=== PATIENT | female | born 1990 | race Caucasian/White ===

== ENCOUNTER 2018-01-09 12:32 | Inpatient (IN) | payer BC, OTHER ==
[~2018-01-09] VITALS: Ht 175.3 cm; Wt 77.1 kg
--- NOTE | 2018-01-09 14:15 | NUR ---
Pre-admission Note: Client received in intake office at this time. She is alert and oriented x 4. Appears disheveled, restless, withdrawn, complains of chills, hot flashes and cold sweats. Does not appear intoxicated at this time. Denies AV hallucinations. No S/I or H/I noted. She denies any allergies to food or medication. Denies seizure history. She states that is here to get off multiple substances. VS BP 135/83, GA 81, RR 20, O2 sat 99%, Temp 98.1, PL 5/10 - generalized muscle aches and pains. Patient is able to provide consent regarding the admission process. Educated patient on the admission process. Patient verbalized understanding. Will continue with the admission process when patient is up in the unit. Dr. Lee aware of patient's arrival in the unit. Will continue to monitor.
[2018-01-09 14:19] VITALS: BP 135/83
[2018-01-09] MEDS ORDERED: LORAZEPAM 2 MG/1 ML VIAL IM PRN (14:30)
[2018-01-09] MEDS ORDERED: LOPERAMIDE HCL 2 MG CAPSULE PO PRN ×2 (14:30)
[2018-01-09] MEDS ORDERED: BUPRENORPHINE HCL 2 MG TAB.SUBL SL PRN (14:30)
[2018-01-09] MEDS ORDERED: NICOTINE POLACRILEX 4 MG GUM-PK OF TEN BC PRN (14:30)
[2018-01-09] MEDS ORDERED: ONDANSETRON 4 MG/2 ML VIAL IM PRN (14:30)
[2018-01-09] MEDS ORDERED: diphenhydrAMINE 50 MG CAPSULE PO PRN (14:30)
[2018-01-09] MEDS ORDERED: CLONIDINE HCL 0.1 MG TABLET PO PRN (14:30)
[2018-01-09] MEDS ORDERED: MAGNESIUM HYDROXIDE 30 ML LIQUID UDC PO PRN (14:30)
[2018-01-09] MEDS ORDERED: DICYCLOMINE HCL 20 MG TABLET PO PRN (14:30)
[2018-01-09] MEDS ORDERED: MIRALAX 17 GM POWD.PACK PO PRN (14:30)
[2018-01-09] MEDS ORDERED: NICOTINE 14 MG/24HR PATCH TD PRN (14:30)
[2018-01-09] MEDS ORDERED: ONDANSETRON ODT 4 MG TAB.RAPDIS SL PRN (14:30)
[2018-01-09] MEDS ORDERED: IBUPROFEN 600 MG TABLET PO PRN (14:30)
[2018-01-09] MEDS ORDERED: LORAZEPAM 1 MG TABLET PO PRN ×2 (14:30)
[2018-01-09] MEDS ORDERED: MAG HYDROX/AL HYDROX/SIMETH 30 ML LIQUID UDC PO PRN (14:30)
--- NOTE | 2018-01-09 14:31 | NUR ---
Admission Note: Admitted at 27 year old female under the care of Dr. Alan Lee for medically supervised withdrawal from opiates and benzodiazepines. She is alert and oriented x 4. Denies S/I or H/I. No AV hallucinations noted. Respirations even and unlabored. No SOB noted. Body search done. No contraband was found. Skin check done. No skin breakdown noted. However, patient was noted to have multiple track martinez to bilateral upper extremity. Abdomen soft and non-distended. No complains of abdominal discomfort noted at this time. LBM reported was yesterday, 01/08/2018. Voids independently. Bladder non-distended. No dysuria noted. Able to provide urine for UDS. NKA. Wishes to be FULL CODE. Follows a regular diet at home. She denies any seizure history. However, reports history of withdrawal induced delirium, accidental intoxication-induced overdoses, and past suicide attempt leading to an involuntary psychiatric hospitalization. Last one being 4 to 5 years ago. She denies having any active suicide plans at this time. She reports past medical hx of asthma, Hep C, GERD, anxiety, depression, bipolar disorder, and PTSD. She reports family hx of alcohol use disorder, depression, bipolar and anxiety. She currently smokes 1 pack of cigarettes a day. She reports her usual withdrawal symptoms are insomnia, achy, sweaty, chills, cold sweats, hot flashes, nausea, vomiting and diarrhea. She is currently homeless and unemployed. She reports having a PCP named Dr. Krista Munoz in [place]. She has been to multiple treatments in the past. Her longest period of sobriety was for 10 months in 2016, then relapsed. Substance Use: 1. Subaxone - 16 mg SL/day x 1 month. Last use was on 01/08/2018 at 2100, 8 mg. 2. Klonopin - Orally 0.5mg 2x/day x 1 month. Last use was on 01/07/2018, 1 mg. 3. Heroin - Injects 1/2 gram to 1 gram intravenously x 1 month. Last use was on 01/08/2018 0900, 1/2 gram. 4. Crack cocaine - smokes 2 grams/day x 1 month. Last use was on 01/08/2018, "unknown amount." Substance Use History: 1. [facility] in [place], [place] - x 20 days in Sep 2017. Orientation to the unit provided. Placed on fall and seizure precautions. Dr. Lee aware of patient's arrival in the unit and orders were entered. Patient will be placed on 5-day Ativan and 5-day Subutex taper as ordered to end on 01/14/2018. Patient brought her own meds. reconciled patient's meds. Patient kept in a comfortable position. Support provided and will medicate as ordered. Will continue to monitor. Addendum: 01/09/18 at 1704 by TOM KING LVN Additional Substance Use: 5. Marijuana - smoked variable quantities daily, last use was 01/08/2018 "unknown amount."
[2018-01-09 14:55] LABS: *URINE HCG, QUAL NEGATIVE (NEGATIVE)
[2018-01-09] MEDS ORDERED: TRAZ-147 PO (14:57)
[2018-01-09] MEDS ORDERED: ESOM5SUS PO (14:57)
[2018-01-09] MEDS ORDERED: QUET100T PO (14:57)
[2018-01-09] MEDS ORDERED: ASPI1TAB2 PO (14:57)
[2018-01-09] MEDS ORDERED: SERT50TA PO (14:57)
[2018-01-09] MEDS ORDERED: ALBU8.5H8 INH (14:57)
[2018-01-09] MEDS ORDERED: OMEP40CA37 PO (14:57)
[2018-01-09] MEDS ORDERED: GABA-536 PO (14:57)
[2018-01-09] MEDS ORDERED: ALBU18HF2 INH (14:57)
[2018-01-09 15:04] LABS: *AMPHETAMINE, URINE NEGATIVE (NEGATIVE); *BARBITURATE, URINE NEGATIVE (NEGATIVE); *CANNABINOID, URINE POSITIVE (NEGATIVE); *COCCAINE, URINE POSITIVE (NEGATIVE); *OPIATE, URINE POSITIVE (NEGATIVE); *PHENCYCLIDINE SCREEN,URINE NEGATIVE (NEGATIVE)
[2018-01-09] MEDS ORDERED: VENTOLIN INH PRN (15:45)
[2018-01-09 16:00] VITALS: BP 136/76
[2018-01-09] MEDS: BUPRENORPHINE HCL 2 MG TAB.SUBL SL SCH ×2 (16:10→20:45)
[2018-01-09] MEDS: METHOCARBAMOL 750 MG TABLET PO PRN (16:11)
[2018-01-09] MEDS: LORAZEPAM 1 MG TABLET PO SCH ×2 (16:11→20:45)
--- NOTE | 2018-01-09 16:11 | NUR ---
Robaxin 750mg/Clonidine 0.1mg PO given: COWS 12, patient presented with anxiety/agitation, complains of chills, cold sweats and hot flashes. Also complain of 5/10 myalgia related to opiate withdrawal. Medicated patient with Robaxin 750 mg PO and Clonidine 0.1mg PO as ordered. Will monitor for effectiveness.
--- NOTE | 2018-01-09 17:11 | NUR ---
Re-assessment: Robaxin/Clonidine Patient verbalizes that PL is now 2/10. She states that she feels more at ease, less chills and hot flashes noted at this time. PRN Robaxin and Clonidine was effective.
[2018-01-09 17:23] LABS: BASOPHILS # (AUTO) 0.1 K/uL (0.0-8.0); EOSINOPHILS # (AUTO) 0.2 K/uL (0.0-0.7); EOSINOPHILS % (AUTO) 2.2 % (0.0-7.0); HEMATOCRIT 40.9 % (31.2-41.9); HEMOGLOBIN 13.8 g/dL (10.9-14.3); LYMPHOCYTES # (AUTO) 2.1 K/uL (20.0-40.0); LYMPHOCYTES % (AUTO) 25.8 % (20.5-51.5); MEAN CORPUSCULAR HEMOGLOBIN 29.2 uug (24.7-32.8); MEAN CORPUSCULAR HGB CONC 34 g/dL (32.3-35.6); MEAN CORPUSCULAR VOLUME 86.7 fL (75.5-95.3); MONOCYTES # (AUTO) 0.7 K/uL (2.0-10.0); MONOCYTES % (AUTO) 8.4 % (0.0-11.0); NEUTROPHILS # (AUTO) 5.2 K/uL (1.8-8.9); NEUTROPHILS % (AUTO) 62.6 % (38.5-71.5); PLATELET COUNT (AUTO) 249 K/uL (179-408); RED BLOOD CELL COUNT(AUTO) 4.72 MIL/uL (3.63-4.92); WHITE BLOOD COUNT (AUTO) 8.3 K/uL (3.8-11.8)
[2018-01-09 17:36] LABS: ETHANOL < 3 MG/DL (0-0)
[2018-01-09 17:43] LABS: ALANINE AMINOTRANSFERASE 87 U/L (14-59); ALKALINE PHOSPHATASE 74 U/L (50-136); ASPARTATE AMINOTRANSFERASE 31 U/L (15-37); BILIRUBIN,TOTAL 0.4 mg/dL (0.2-1.0); CARBON DIOXIDE 24 mmol/L (21-32); CHLORIDE 101 mmol/L (98-107); CREATININE 0.7 mg/dL (0.6-1.3); GLUCOSE 114 mg/dL (74-106); MAGNESIUM 1.9 mg/dL (1.8-2.4); POTASSIUM 3.8 mmol/L (3.5-5.1); TOTAL PROTEIN, SERUM 8.1 g/dL (6.4-8.2); UREA NITROGEN, BLOOD 9 mg/dL (7-18)
[2018-01-09 18:43] LABS: THYROID STIMULATING HORMONE 0.214 mIU/mL (0.358-3.740)
--- NOTE | 2018-01-09 19:03 | NUR ---
End of Shift Notes: Patient initiated her 5-day Subutex and Ativan taper today. VS monitored closely. No significant abnormalities noted. Withdrawal symptoms were closely monitored. Initial COWS 12/CIWA 12, patient presented with anxiety, agitation, chills, hot flashes, cold sweats, clammy skin, and myalgia. Medicated patient with Robaxin and Clonidine at 1611 with help after 1 hour. Last COWS /CI 12. Per patient, Ativan and Subutex has been effective in reducing her withdrawal symptoms. All needs met and attended. Will continue to monitor closely.
--- NOTE | 2018-01-09 19:03 | NUR ---
START OF SHIFT NOTE: Endorsed patient is a 27 year old female admitted for Benzodiazepines, Opioid, Crack Cocaine, and Marijuana withdrawal, continues 5 day Ativan and 5 day Subutex taper with tolerated well. Patent reports NKA, is on Full Code, Regular Diet, is on Fall and Seizures Precautions. Patient denies History of withdrawal-induced seizures. Patient denies SI/HI. Patient is alert and oriented x4. Last COWS=12, CIWA=12 @1600 per outgoing day shift nurse report: Patient presented with anxiety, agitation, nervousness, tremors, myalgia, sweating, nasal stiffness, and yawning. PRN Clonidine 0.1 mg PO administrated for anxiety @1611, and PRN Robaxin 750 mg 1 tab PO administrated for myalgia @1611 as ordered were effective per day shift nurse report. Patient remains compliant with treatment, medications and diet regime. Encouraged to fluid intake as tolerated. Encourage to attended groups activities. All needs met. Safety measures in place: Call light within reach, bed is locked in lowest position, padded bed rails up bilaterally. Patient endorsed by day shift nurse. Report received. Will continue to monitor closely.
[2018-01-09 20:00] VITALS: BP 107/67
[2018-01-09] MEDS: GABAPENTIN 300 MG CAPSULE PO SCH (20:45)
--- NOTE | 2018-01-09 22:00 | NUR ---
PRN BENADRYL 50 MG 1 CAP PO ADMINISTRATION Patient c/o insomnia. PRN Benadryl 50 mg 1 cap PO administrated with full glass of water as ordered. Patient tolerated well. All needs met. Safety measures on place. Call light within reach, bed in lowest position locked, padded rails up bilaterally. Will continue to monitor closely.
--- NOTE | 2018-01-09 23:00 | NUR ---
RE-ASSESSMENT Patient is sleeping. RR 14. Respirations even and unlabored. PRN Benadryl 50 mg 1 tab PO administrated for insomnia @2200 as ordered was effective. All needs met. Safety measures on place. Call light within reach, bed in lowest position locked, padded rails up bilaterally. Will continue to monitor closely.
[2018-01-10] VITALS: BP 123/77
--- NOTE | 2018-01-10 00:26 | NUR ---
PRN ATIVAN 2 MG PO ADMINISTRATION PRN ATIVAN 2 MG PO ADMINISTRATED FOR CIWA=15 ORDERED. PATIENT TOLERATED WELL. ALL NEEDS MET. SAFETY MEASURES IN PLACE;CALL LIGHT WITHIN REACH, BED IS LOCKED IN LOWEST POSITION, PADDED BED RAILS UP X2. WILL CONTINUE TO MONITOR CLOSELY. Addendum: 01/10/18 at 0619 by MARBELLA KWONG RN PRN ATIVAN 2 MG PO ADMINISTRATED FOR CIWA=17 ORDERED.
--- NOTE | 2018-01-10 01:26 | NUR ---
RE-ASSESSMENT Patient is sleeping. RR 15. Respirations even and unlabored. PRN Ativan 2 mg PO administrated for CIWA= 15 @0026 as ordered was effective. All needs met. Safety measures on place. Call light within reach, bed in lowest position locked, padded rails up bilaterally. Will continue to monitor closely. Addendum: 01/10/18 at 0309 by MARBELLA KWONG RN PRN ATIVAN 2 MG PO ADMINISTRATED FOR CIWA=17 ORDERED.
[2018-01-10 04:00] VITALS: BP 109/63
--- NOTE | 2018-01-10 06:49 | NUR ---
END OF SHIFT NOTE: 27 year old female presented for Benzodiazepines, Opioid, Crack Cocaine, and Marijuana withdrawal, continues 5 day Ativan and 5 day Subutex taper. Patient tolerated well. Withdrawal symptoms was closely monitored. Patient noted anxious, worry, unshaven, uncombed. Patient 's c/o feelings of low self-esteem, increased anxiety and irritability. Emotional support provided, and patient 's reassuring. Patient educated in safety and hygiene care. Encouraged to independently perform hygiene care. Withdrawal symptoms was closely monitored. COWS=9, CIWA=9 @2000, COWS=15, CIWA=15 @0000, COWS=15, CIWA=17 @0026, Ativan 2 mg PO administrated PRN as ordered for CIWA=17, and was effective: in one hour CIWA =10 @0126. Last COWS=8, CIWA=9 @0400. During hourly shift patient c/o anxiety, agitation, nervousness, nasal stuffy, stomach cramps, sweating, tremors, and restlessness. PRN Benadryl 50 mg 1 tab PO administrated for insomnia @2200 was effective. Safe and calm environment with minimized noises was provided. Patient slept 6 hours, intake 651 ml, voided x2. All needs met. Safety measures in the place by hospital policy: Call light within reach, bed in the lowest position and locked, padded rails up x2. Patient endorsed to day shift nurse.
--- NOTE | 2018-01-10 07:05 | NUR ---
Start of Shift Rehabilitation Nurse received report on 27 year old female admitted to [facility] on 01/09/18 for medically supervised withdrawal from Opiates, Benzodiazepines and crack cocaine. Pt endorses NKA, full code, and regular diet. Reports PMH of Bipolar, anxiety, depression, Panic DO, PTSD, Hep C, and is positive for SA many years ago. Pt has been started on an Ativan and Subutex taper and is tolerating well, with COWS 8 and CIWA 9, recorded at 0400, per NOC report. Pt was administered Benadryl PRN for insomnia and then PRN Ativan for CIWA of 17 at 0026. Rehabilitation Nurse encounters pt in her room, resting in bed. A/O x4 and makes needs known. Calm and cooperative, blunted affect with depressed mood. Reports having experience with withdrawal and knows what to expect. Endorsed being familiar with withdrawal medications and will ask for appropriate medication when necessary. Bed in low position, with wheels locked and side rails up x2. Will continue to monitor, support and encourage according to plan of care.
[2018-01-10] MEDS: PANTOPRAZOLE SODIUM 40 MG TABLET.DR PO SCH (07:17)
[2018-01-10 08:26] VITALS: BP 109/79
[2018-01-10] MEDS ORDERED: TUBERCULIN,PURIF.PROT.DERIV. 5 TU/0.1 ML TEST ID ONE (09:00)
[2018-01-10] MEDS: LORAZEPAM 1 MG TABLET PO SCH ×3 (09:09→20:15)
[2018-01-10] MEDS: GABAPENTIN 300 MG CAPSULE PO SCH ×3 (09:09→20:15)
[2018-01-10] MEDS: BUPRENORPHINE HCL 2 MG TAB.SUBL SL SCH ×3 (09:10→20:16)
[2018-01-10] MEDS: METHOCARBAMOL 750 MG TABLET PO PRN (09:38)
--- NOTE | 2018-01-10 09:38 | NUR ---
PRN Bentyl/Briceaxin Pt having complaints of abdominal pain/cramps, as well as generalized muscle discomfort. Insulator Helper administers medication per order and pt tolerated well. Will continue to monitor, support and encourage according to plan of care.
--- NOTE | 2018-01-10 10:38 | NUR ---
PRN Re-Assessment Pt is resting on bed with eyes closed, even and unlabored respirations. Will continue to monitor, support and encourage according to plan of care.
[2018-01-10] MEDS ORDERED: SERTRALINE HCL 50 MG TABLET PO SCH (11:00)
[2018-01-10] MEDS: SERTRALINE HCL 100 MG TABLET PO SCH (11:47)
[2018-01-10 12:18] VITALS: BP 117/72
[2018-01-10 16:59] VITALS: BP 137/88
--- NOTE | 2018-01-10 18:44 | NUR ---
End of Shift Dairy Scientist provided report on 27 year old female admitted to [facility] on 01/09/18 for medically supervised withdrawal from Opiates, Benzodiazepines and crack cocaine. Pt endorses NKA, full code, and regular diet. Reports PMH of Bipolar, anxiety, depression, Panic DO, PTSD, Hep C, and is positive for SA many years ago. Pt has been started on an Ativan and Subutex taper and is tolerating well, with COWS 9 and CIWA 9, recorded at 1600. Pt was administered Bentyl and Robaxin this am with relief endorsed. Pt has been cooperative and pleasant. Makes needs known. A/O x4, calm and cooperative. Social with peers and staff. Bed in low position, with wheels locked and side rails up x2. Will continue to monitor, support and encourage according to plan of care.
--- NOTE | 2018-01-10 18:44 | NUR ---
START OF SHIFT NOTE: 27 year old female, alert and oriented x4, continues ordered 5 day Ativan and 5 day Subutex taper for Benzodiazepines,Opioid , and Cocaine crack withdrawal, which tolerated well. Patent reports NKA, is on Full Code, Regular Diet, is on Fall and Seizures Precautions. Patient denies History of withdrawal-induced seizures. Patient denies SI/HI. Last COWS=9, CIWA=9 @1600 per day shift nurse report: Patient c/o anxiety, agitation, nervousness, tremors, myalgia, sweating, stomach cramps, abdominal spasm, nasal stiffness, and generalized body aches. PRN Bentyl administrated for abdominal spasm @0938, PRN Robaxin PO administrated for myalgia @0938, PRN Clonidine 0.1 mg PO administrated for anxiety, agitation, chills, and diaphoresis @1611, as ordered, were effective per day shift nurse report. Patient remains compliant with treatment, medications and diet regime. Encouraged to fluid intake as tolerated. Encourage to attended groups activities. All needs met. Safety measures in place: Call light within reach, bed is locked in lowest position, padded bed rails up bilaterally. Patient endorsed by day shift nurse. Report received. Will continue to monitor closely.
[2018-01-10 20:00] VITALS: BP 132/90
[2018-01-10] MEDS: CLONIDINE HCL 0.1 MG TABLET PO SCH (20:15)
[2018-01-10] MEDS: QUETIAPINE FUMARATE 200 MG TABLET PO SCH (20:15)
[2018-01-10] MEDS ORDERED: QUETIAPINE FUMARATE 100 MG TABLET PO SCH (21:00)
[2018-01-11] VITALS: BP 103/58
[2018-01-11 04:00] VITALS: BP 105/62
[2018-01-11 06:06] LABS: HEPATITIS B SURFACE AG Negative (Negative)
[2018-01-11] MEDS: PANTOPRAZOLE SODIUM 40 MG TABLET.DR PO SCH (06:25)
--- NOTE | 2018-01-11 06:49 | NUR ---
END OF SHIFT NOTE: Endorsed 27 year old female continues 5 day Ativan and 5 day Subutex taper for Benzodiazepines, Opioid, and Crack Cocaine withdrawal. Patient remains compliant with treatment, medications and diet regime. Withdrawal symptoms was closely monitored. Patient appears sad with poor eye contact, anxious, worry, disheveled, uncombed. Garbage noted in the room. Patient educated in safety and hygiene care. Encouraged to independently perform hygiene care. Encouraged to use of Relaxation Techniques: deep breathing exercises, guided imagery, visualization. COWS=11,CIWA=10 @2000, COWS =11, CIWA=10 @0000. Last COWS=7, CIWA=8 @0400. Patient presented with anxiety, agitation, nervousness, tremors, sweating, restlessness, body aches, abdominal cramps, and fatigue throughout my shift. No PRN Medications administrated during my shift. Encouraged to fluid intake as tolerated. Encouraged to attend groups activities. Calm environment and minimized noises was provided. Patient slept 7 hours, intake 1,313 ml, voided x3. All needs met. Safety measures in the place by hospital policy: Call light within reach, bed in the lowest position and locked, padded rails up x2. Patient endorsed to day shift nurse, report given.
--- NOTE | 2018-01-11 07:20 | NUR ---
Start of Shift Notes: Received patient in her room. Alert and oriented x 4. No AV hallucinations noted. Denies S/I or H/I. Appears anxious, worried, disheveled and with sad facial expression. Room appears unkempt with empty water bottles, juice and cookies on the floor. Encouraged maintenance of personal hygiene and space. Patient is a 27 year old female admitted for opiate and BZO withdrawal who was placed on a 5-day Subutex and 5-day Ativan taper as ordered. No adverse reactions noted. Encouraged oral fluid intake and encouraged group participation to learn new skills to prevent relapse. No PRNs given during the night. Slept for 7 hours. Last COWS 7/CIWA 8. Will continue to monitor.
[2018-01-11 07:59] LABS: ALANINE AMINOTRANSFERASE 52 U/L (14-59); ALKALINE PHOSPHATASE 67 U/L (50-136); ASPARTATE AMINOTRANSFERASE 17 U/L (15-37); BILIRUBIN,DIRECT < 0.1 mg/dL (0.0-0.2); BILIRUBIN,TOTAL 0.2 mg/dL (0.2-1.0); CARBON DIOXIDE 23 mmol/L (21-32); CHLORIDE 106 mmol/L (98-107); CREATININE 0.8 mg/dL (0.6-1.3); GLUCOSE 91 mg/dL (74-106); MAGNESIUM 1.9 mg/dL (1.8-2.4); TOTAL PROTEIN, SERUM 7.3 g/dL (6.4-8.2); UREA NITROGEN, BLOOD 7 mg/dL (7-18)
[2018-01-11 08:00] VITALS: BP 123/81
[2018-01-11] MEDS: SERTRALINE HCL 100 MG TABLET PO SCH (08:21)
[2018-01-11] MEDS: GABAPENTIN 300 MG CAPSULE PO SCH ×2 (08:21→14:03)
[2018-01-11] MEDS: METHOCARBAMOL 750 MG TABLET PO PRN (08:21)
--- NOTE | 2018-01-11 08:21 | NUR ---
Robaxin 750 mg PO given: Patient noted with complain of 6/10 generalized muscle/joint aches related to opiate withdrawal. Heat pack provided but ineffective. Medicated patient with Robaxin 750 mg PO PO as ordered. Will monitor for effectiveness.
[2018-01-11] MEDS: CLONIDINE HCL 0.1 MG TABLET PO SCH ×3 (08:22→21:31)
[2018-01-11 09:00] LABS: THYROID STIMULATING HORMONE 0.233 mIU/mL (0.358-3.740)
[2018-01-11] MEDS ORDERED: HYDROXYZINE PAMOATE 25 MG CAPSULE PO PRN (09:00)
[2018-01-11] MEDS ORDERED: LORAZEPAM 1 MG TABLET PO SCH ×2 (09:00→21:00)
[2018-01-11] MEDS ORDERED: BUPRENORPHINE HCL 2 MG TAB.SUBL SL SCH (09:00)
--- NOTE | 2018-01-11 09:21 | NUR ---
Re-assessment: Robaxin Per patient, PRN Robaxin was effective in reducing patient's muscle/joint pain. PL is now 11/13.
--- NOTE | 2018-01-11 10:15 | NUR ---
Therapist prompted client to attend all groups while in treatment to increase feelings of being connected to others and not be isolated in bedroom. Therapist explained the benefits of attending groups such as learning new coping tools, learning about feelings/emotions and being able to learn to decrease negative feelings and thoughts.
[2018-01-11] MEDS ORDERED: HYDR25CA PO (11:56)
[2018-01-11 12:00] VITALS: BP 101/61
[2018-01-11] MEDS: LORAZEPAM 1 MG TABLET PO SCH ×2 (12:08→16:33)
[2018-01-11] MEDS ORDERED: TUBERCULIN,PURIF.PROT.DERIV. 5 TU/0.1 ML TEST ID ONE (13:00)
[2018-01-11] MEDS: BUPRENORPHINE HCL 2 MG TAB.SUBL SL SCH ×2 (14:02→21:30)
[2018-01-11 16:00] VITALS: BP 130/70
[2018-01-11] MEDS: ACETAMINOPHEN 325 MG TABLET PO PRN (17:09)
--- NOTE | 2018-01-11 17:09 | NUR ---
Tylenol 650 mg PO given: Patient complained of 4/10 headache. Non-pharmacological interventions provided but ineffective. Medicated patient with Tylenol 650 mg PO as ordered. Will monitor for effectiveness.
--- NOTE | 2018-01-11 18:09 | NUR ---
Re-assessment: Tylenol Per patient, PRN Tylenol was effective in relieving headache. PL 0/10.
--- NOTE | 2018-01-11 18:52 | NUR ---
End of Shift Notes: Patient continues to be on 5-day Ativan and 5-day Subutex taper as ordered. No adverse reactions noted. VS monitored closely. No significant abnormalities noted. Withdrawal symptoms were closely monitored. Initial COWS 16/CIWA 14, patient presented with anxiety/agitation, gross tremors, piloerection of the skin, paresthesia, sweats, restlessness, yawning, myalgia and nasal stuffiness. No AV hallucinations noted. No S/I or H/I noted. Requires encouragement to attend group and activities. Medicated patient with Robaxin 750 mg PO as ordered at 0821 with help after 1 hour. At 1709, Tylenol 650 mg PO was given for headache with help after 1 hour. Last COWS /CIWA 10. Per patient, Ativan and Subutex has been effective in reducing her withdrawal symptoms. TB test administered to patients right forearm. Compliant with care and treatment. Requires encouragement to attend group and activities due to episodes of self isolation. All needs met and attended. Will continue to monitor.
--- NOTE | 2018-01-11 18:52 | NUR ---
START OF SHIFT NOTE: Endorsed patient is a 27 year old female continues ordered 5 day Ativan and 5 day Subutex taper for Benzodiazepines, Opioid , and Cocaine Crack withdrawal. Patient tolerated well. Patient is alert and oriented x4, reports NKA, is on Full Code, Regular Diet, is on Fall and Seizures Precautions. Patient denies History of withdrawal-induced seizures. Patient denies SI/HI. Last COWS=11, CIWA=10 @1600 per day shift nurse report: Patient presented with anxiety, agitation, nervousness, tremors, myalgia, sweating, stomach cramps, abdominal spasm, nasal stiffness, and body aches. PRN Robaxin PO administrated for myalgia @0821, PRN Tylenol 650 mg PO administrated for pain @1709 were effective per day shift nurse report. Patient remains compliant with treatment, medications and diet regime. Encouraged to fluid intake as tolerated. Encourage to attended groups activities. All needs met. Safety measures in place: Call light within reach, bed is locked in lowest position, padded bed rails up bilaterally. Patient endorsed by day shift nurse. Report received. Will continue to monitor closely.
[2018-01-11 20:00] VITALS: BP 115/68
[2018-01-11] MEDS ORDERED: GABAPENTIN 300 MG CAPSULE PO SCH (21:00)
[2018-01-11] MEDS: QUETIAPINE FUMARATE 200 MG TABLET PO SCH (21:31)
[2018-01-12] VITALS: BP 90/49
[2018-01-12 04:00] VITALS: BP 115/77
[2018-01-12] MEDS: PANTOPRAZOLE SODIUM 40 MG TABLET.DR PO SCH (06:13)
--- NOTE | 2018-01-12 06:46 | NUR ---
END OF SHIFT NOTE: 27 year old female continues ordered 5 day Ativan and 5 day Subutex taper for Benzodiazepines,Opioid, and Cocaine Crack withdrawal. Withdrawal symptoms closely monitored. Patient remains compliant with treatment, medications, and diet regime. Patient is alert and oriented x4. Patient is alert and oriented x4. She is appears sad, worry, disheveled, unkempt, and uncombed. Garbage seen around room. Educated in safety and hygiene care. Encouraged to independently perform hygiene care. Encouraged verbalization of feelings, fears, and anxiety. Educated to use of relaxation techniques. COWS=12,CIWA=12 @2000, COWS=9,CIWA=7 @0000. Last COWS=11, CIWA=10 @0400: Patient presented with anxiety, agitation, nervousness, tremors, sweating, stomach cramps, and c/o nasal congestion. CIWA taken while patient was alert. No PRN Medications administrated last third shift lieutenant. Encouraged to fluids intake as tolerated. Encouraged to attend group activities. Safe and calm environment with minimized noises was provided. Patient slept 6 hours, intake 1,250 ml, voided x1. All needs met. Safety measures in the place by hospital policy: Call light within reach, bed in the lowest position locked, padded rails up x2. Patient endorsed to day shift nurse.
--- NOTE | 2018-01-12 07:50 | NUR ---
START OF SHIFT Endorse rcvd from ongoing nurse, client is in bed, she is a/o x 4, she presents with anxious mood, flat affect, dark circles under eyes, dry lips, flushed face, clammy skin, goosebump, disheveled, scattered dry scabs on cheeks. Client's room has a dozen open soft drinks, juice and water bottles. She keeps he bedside table and top of drawer with of cartoon milk, several open cereal cups, scattered clothes around the floor, primary nurse cleaned floor, collected bottles and encourage client to take a shower and maintain order in her room. Client reports feeling tired most of the time, nausea, stomach cramps, generalized body aches, cold/chills, and restless legs. "My body feels like I got the flu, but 10 times worse, I just want to rest." Encourage client to attend group therapy to learn skills to maintain sober. Last CIWA 11 @ 0400. Client had an uneventful night, she slept 7 hrs. Seizure precaution rendered. Call light within reach.
[2018-01-12 08:02] VITALS: BP 116/72
[2018-01-12] MEDS ORDERED: LORAZEPAM 1 MG TABLET PO SCH ×3 (09:00→21:00)
[2018-01-12] MEDS: SERTRALINE HCL 100 MG TABLET PO SCH (09:53)
[2018-01-12] MEDS: GABAPENTIN 300 MG CAPSULE PO SCH ×3 (09:53→20:49)
[2018-01-12] MEDS: CLONIDINE HCL 0.1 MG TABLET PO SCH ×3 (09:54→20:48)
[2018-01-12] MEDS: BUPRENORPHINE HCL 2 MG TAB.SUBL SL SCH ×3 (09:54→20:49)
[2018-01-12 12:00] VITALS: BP 112/74
[2018-01-12] MEDS: DICYCLOMINE HCL 20 MG TABLET PO SCH ×2 (14:36→20:49)
[2018-01-12] MEDS: KETOROLAC TROMETHAMINE 30 MG INJ IM PRN (14:36)
--- NOTE | 2018-01-12 14:36 | NUR ---
PRN Toradol 30mg IM administered to L buttock for generalized body aches 06/13. Will continue to monitor. Call light within reach.
--- NOTE | 2018-01-12 15:06 | NUR ---
Reassess PRN Toradol 30mg IM, client reports some relief from generalized body aches 3/10, but tolerable. Call light within reach.
[2018-01-12 16:55] VITALS: BP 107/60
--- NOTE | 2018-01-12 19:04 | NUR ---
END OF SHIFT Endorse client to incoming nurse, client is in bed, she is a/o x 4, she continues to present with anxious mood, flat affect, flushed face, clammy skin, goosebump, nausea, stomach cramps, generalized body aches, cold/chills, and restless legs. Adequate PO fluid intake 1460mL, void x 2. Client consumes ~50% of meals. Client is not compliant with group therapy d/t above withdrawal symptoms. PRN Toradol 30mg IM administered for generalized body aches 06/13, noted effective. Last CIWA 15 @ 1600. Seizure precaution rendered. Call light within reach.
[2018-01-12 20:00] VITALS: BP 109/71
--- NOTE | 2018-01-12 20:00 | NUR ---
Start of Shift Notes Received a 27 y/o female px, admitted on 01/09/2018 for medically supervised withdrawals from Opiates and Benzos. Px was placed on 5 day Ativan and 5 day Subutex taper started on 01/09/2018. Px is tolerating well. During the rounds at 2000, VS as follows, BP= 109/71, UT= 96, RR= 16, T= 100.1 and O2sat= 98% in RA. Px has poor eye contact but active and cooperative. Soiled clothes all over the floor and unfinished snacks and drinks noted inside the room. Px complained of dizziness, sweats, cold/hot flushes, anxiety of 6/10 and generalized body aches of 4/10. Px was advised to drink water 2-3 L water daily or as tolerated. Bed on lowest position, side rails up 2x and call light within reach. We'll continue to monitor.
[2018-01-12] MEDS: QUETIAPINE FUMARATE 200 MG TABLET PO SCH (20:48)
[2018-01-12] MEDS: ACETAMINOPHEN 325 MG TABLET PO PRN (20:49)
--- NOTE | 2018-01-12 20:49 | NUR ---
PRN Tylenol Px's T= 100.1. Tylenol 325 mg/tab, 2 tabs given PO for mild fever. We'll continue to monitor.
--- NOTE | 2018-01-12 21:50 | NUR ---
Reassessment of Temperature Px's T= 98.8 after an hour of administration of Tylenol 650 mg PO. We'll continue to monitor.
[2018-01-13] VITALS: BP 96/55
--- NOTE | 2018-01-13 | NUR ---
COWS and CIWA deferred COWS and CIWA deferred due to the px is asleep, to assess if the px is awake per doctor's order. We'll continue to monitor.
[2018-01-13 04:00] VITALS: BP 91/57
[2018-01-13] MEDS: PANTOPRAZOLE SODIUM 40 MG TABLET.DR PO SCH (06:40)
--- NOTE | 2018-01-13 07:10 | NUR ---
End of Shift Notes During the shift at 2048, Px was given Tylenol 325 mg/tab, 2 tabs given PO for T=100.1. It was effective, latest T= 97.6 at 0400. COWS improved from 11 to 8 and CIWA from 11 to 9. Px's oral intake is 1,300 ml, voided 3x, No BM. Px slept for 4 hours. At 0630, is asleep on bed in left side lying position. Bed on lowest position, side rails up 2x and call light within reach. We'll continue to monitor. Px endorsed to AM shift nurse.
--- NOTE | 2018-01-13 07:46 | NUR ---
START OF SHIFT Client is in sitting at the edge of bed, she is a/o x 4, she presents with anxious mood, flat affect, fine tremors, sweat noted on upper lip, dilated eyes, goosebump, inability to stay still, poor concentration. Client stated, "I feel like shit, my stomach hurts pretty bad, I feel all my muscles tied up, my whole body hurts, I have nausea, no appetite, I feel jumpy all the time, like something bad is going to happen." Encourage client to increase PO fluid to facilitate detox. Encourage client to attend group therapy to learn skills to maintain sober. Last CIWA 8 @ 1999. PRN Tylenol 650mg PO administered for T100.1, noted effective. Seizure precautions rendered. Call light within reach.
[2018-01-13 08:55] VITALS: BP 117/76
[2018-01-13] MEDS: LORAZEPAM 1 MG TABLET PO SCH ×2 (09:31→20:26)
[2018-01-13] MEDS: DICYCLOMINE HCL 20 MG TABLET PO SCH ×3 (09:31→20:26)
[2018-01-13] MEDS: GABAPENTIN 300 MG CAPSULE PO SCH ×3 (09:31→20:25)
[2018-01-13] MEDS: SERTRALINE HCL 100 MG TABLET PO SCH (09:31)
[2018-01-13] MEDS: CLONIDINE HCL 0.1 MG TABLET PO SCH ×2 (09:32→14:07)
[2018-01-13] MEDS: BUPRENORPHINE HCL 2 MG TAB.SUBL SL SCH ×2 (09:32→20:26)
[2018-01-13] MEDS: KETOROLAC TROMETHAMINE 30 MG INJ IM PRN ×2 (11:32→21:25)
--- NOTE | 2018-01-13 11:32 | NUR ---
PRN Toradol 30mg IM administered to R buttock for generalized body aches 06/13. Will continue to monitor. Call light within reach.
--- NOTE | 2018-01-13 12:02 | NUR ---
Reassess PRN Toradol 30mg IM, client reports relief from generalized body aches 2/10, but tolerable. Call light within reach.
--- NOTE | 2018-01-13 12:15 | NUR ---
TB test R forearm firm red bump 10mm induration. client denies any cough, chest pain, fever, night sweats. She stated, "I got a positive TB two months ago." and CN notified.
[2018-01-13 12:24] VITALS: BP 103/79
[2018-01-13] MEDS: BACLOFEN 10 MG TABLET PO SCH ×2 (14:07→20:26)
--- NOTE | 2018-01-13 14:20 | NUR ---
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
--- NOTE | 2018-01-13 15:48 | NUR ---
MD Notified of chest x ray impression: No gross radiographic evidence of active tuberculosis.
--- NOTE | 2018-01-13 16:00 | NUR ---
MD Notification Client appears difficult to arouse, BP 115/54 P 52, RR 16, even, non-labored. After an 1.5 hr of Baclofen 10mf, Neurontin 600mg, Bentyl 20mg, and Clonidine 0.1mg. Per Dr Lee to continue monitoring. CN notified.
[2018-01-13 16:25] VITALS: BP 115/54
--- NOTE | 2018-01-13 17:35 | NUR ---
Client able to walk and go to the cafeteria for dinner. She stated, "I'm feeling better with the baclofen you gave me, it help a lot with my muscle spasms."
--- NOTE | 2018-01-13 19:14 | NUR ---
END OF SHIFT Endorse client to incoming nurse, Client is a/o x 4, she is in room, she continues to present with anxious mood, flat affect, fine tremors, goosebump, and poor concentration. Adequate PO fluid intake 1850mL, void x 2. Client consumes ~ 50% of meals. Client is not compliant with group therapy d/t above withdrawal symptoms. last CIWA 11 @ 1600. PRN Toradol 20mg IM to R buttock for generalized body aches 06/13, noted effective. Seizure precautions rendered. Call light within reach.
--- NOTE | 2018-01-13 19:30 | NUR ---
Start of Shift Note Received a 27 y/o female px, admitted on 01/09/2018 for medically supervised withdrawals from Opiates and Benzos. Px was placed on 5 day Ativan and 5 day Subutex taper started on 01/09/2018. Px is tolerating well. During the rounds at 1930,px looks anxious and disheveled. VS as follows, BP= 119/74, KY= 64, RR= 16, T= 97.6, O2sat= 98%. Soiled clothes noted on top of chair and unfinished snacks and drinks noted on top of bed side table and cabinet. Px stated "My anxiety is 6/10 and I have H/A and body aches 8/10". Px was advised to drink water 2-3 L water daily or as tolerated. Last reported COWS 11 and CIWA 11 by AM shift nurse. Bed on lowest position, side rails up 2x and call light within reach. We'll continue to monitor.
[2018-01-13 20:00] VITALS: BP 119/74
[2018-01-13] MEDS: QUETIAPINE FUMARATE 200 MG TABLET PO SCH (20:25)
[2018-01-13] MEDS: CLONIDINE HCL 0.2 MG TABLET PO SCH (20:26)
--- NOTE | 2018-01-13 21:25 | NUR ---
PRN Toradol Px complained of severe body aches and H/A. Px stated "My body aches and H/A is like 06/13". Toradol 30 mg/ml given IM as PRN med. We'll continue to monitor.
--- NOTE | 2018-01-13 22:00 | NUR ---
Reassessment of pain Px stated "My pain is 5/10". PRN Toradol was effective after 30 mins of administration. We'll continue to monitor.
[2018-01-14] VITALS: BP 98/56
[2018-01-14 04:00] VITALS: BP 105/56
[2018-01-14] MEDS: PANTOPRAZOLE SODIUM 40 MG TABLET.DR PO SCH (06:50)
--- NOTE | 2018-01-14 07:20 | NUR ---
End of Shift Note During the shift at 2124, Toradol 30 mg/ml given IM for severe body aches and H/A. It was effective. At 0400, px stated "my pain is 5/10 right now". COWS improved from 10 to 7 and CIWA improved from 11 to 8. At 0630, px is asleep on bed in fowlers position. Bed on lowest position, side rails up 2x and call light within reach. We'll continue to monitor. Px endorsed to AM shift nurse.
--- NOTE | 2018-01-14 07:34 | NUR ---
START OF SHIFT Client is in room, a/o x 4, she presents with depressed mood, flat affect, disheveled, clammy skin, tremors felt, not observed, goosebump, and enlarged pupils. Client reports generalized body aches 6/10, headache at frontal area, does not radiate, restless legs, stomach crams, and fatigue. Encourage client to take a shower after morning meds and to keep her room clean. Scattered clothes, snacks, and spilled bottle of sprite on the floor noted. Encourage client to attend group therapy to learn skills to maintain sober. Encourage client to increase PO fluid to facilitate detox. Last of 6 day Ativan/Subutex taper. Last CI 7 @ 1999. PRN Toradol 30mg IM for generalized body aches pain 06/13, noted effective. Client slept 6 hrs. Seizure precautions rendered. Call light within reach.
[2018-01-14 08:00] VITALS: BP 108/61
[2018-01-14] MEDS: CLONIDINE HCL 0.1 MG TABLET PO SCH ×2 (09:00→15:00)
[2018-01-14] MEDS ORDERED: LORAZEPAM 1 MG TABLET PO SCH (09:00)
[2018-01-14] MEDS ORDERED: BUPRENORPHINE HCL 2 MG TAB.SUBL SL SCH (09:00)
[2018-01-14] MEDS: GABAPENTIN 300 MG CAPSULE PO SCH ×3 (09:36→21:15)
[2018-01-14] MEDS: BACLOFEN 10 MG TABLET PO SCH ×3 (09:36→21:15)
[2018-01-14] MEDS: DICYCLOMINE HCL 20 MG TABLET PO SCH ×3 (09:36→21:16)
[2018-01-14] MEDS: SERTRALINE HCL 100 MG TABLET PO SCH (09:36)
--- NOTE | 2018-01-14 11:44 | NUR ---
Endorsed client to RN Client continues to present with anxious mood, flat affect. Last CIWA 11 @ 0800. Client consumes 0% of breakfast, but ate snacks. Seizure precautions rendered. call light within reach.
--- NOTE | 2018-01-14 11:50 | NUR ---
ASSUMED CARE FOR PT. WILL CONTINUE TO MONITOR AND MANAGE S/S OF W/D.
[2018-01-14 12:00] VITALS: BP 109/85
[2018-01-14] MEDS ORDERED: HYDR-3895 PO (13:14)
[2018-01-14] MEDS ORDERED: DICY20TA28 PO (13:14)
[2018-01-14] MEDS ORDERED: DIPH50CA37 PO (13:14)
[2018-01-14] MEDS ORDERED: CLON0.1T14 PO (13:14)
[2018-01-14] MEDS ORDERED: QUET200T PO (13:14)
[2018-01-14] MEDS ORDERED: SERT100T12 PO (13:14)
[2018-01-14] MEDS ORDERED: PANT40TA2 PO (13:14)
[2018-01-14] MEDS ORDERED: METH-406 PO (13:14)
[2018-01-14] MEDS ORDERED: GABA-534 PO ×2 (13:14)
[2018-01-14] MEDS ORDERED: IBUP-1955 PO (13:14)
[2018-01-14 16:00] VITALS: BP 125/87
--- NOTE | 2018-01-14 16:31 | NUR ---
1500 MEDS HELD PT IS ASLEEP. COWS AND CIWA DEFERRED AT 1600 PT IS SLEEPING. RESPIRATIONS EVEN AND UNLABORED. BED LOCKED AND LOW. CALL PERRIN IN REACH. WILL CONTINUE TO MONITOR AND PROVIDE SAFE AND SUPPORTIVE ENVIRONMENT.
--- NOTE | 2018-01-14 17:26 | NUR ---
CASSANDRA PT WOKE UP ASKING FOR 1500 MEDS. SHE STATES SHE REMEMBERS ME TRYING TO WAKE HER FOR MEDS BUT DIDN'T REALIZE THEY WOULD BE HELD. SHE C/O ANXIETY AND BODY ACHES. VISTARIL AND MARVIN DICKEY PRN GIVEN TO MANAGE S/S OF W/D. Addendum: 01/14/18 at 1742 by NEGRITO HA RN ROBAXIN NOT GIVEN.
[2018-01-14] MEDS: KETOROLAC TROMETHAMINE 30 MG INJ IM PRN (17:38)
--- NOTE | 2018-01-14 17:41 | NUR ---
PRN Toradol Pt reports generalized body aches 06/13. She is restless and fidgeting in bed. PRN Toradol administered. Will monitor for effectiveness.
--- NOTE | 2018-01-14 18:11 | NUR ---
PRN Toradol reassessment PRN Toradol somewhat effective. Pt reports pain level reduced to 5/10.
--- NOTE | 2018-01-14 18:50 | NUR ---
PRN Zofran Pt has nausea with one episode of vomiting after dinner. PRN Zofran administered.
--- NOTE | 2018-01-14 18:51 | NUR ---
END OF SHIFT: PT COMPLETED ATIVAN/SUBUTEX TAPER TO MANAGE S/S OF W/D. LAST COWS 3 CIWA 5. SHE C/O BODY ACHES AND ANXIETY. SHE STAYED IN ROOM MOST OF SHIFT AND SLEPT QUITE A BIT. HELD 1500 MEDS DUE TO SLEEP AND PT REQUESTED MEDS AT 1720. SHE C/O BODY ACHES AND ANXIETY AND PRN VISTARIL GIVEN.SHE THEN STATED THAT IT WAS ACTUAL BODY PAIN 06/13 AND AND PRN TORADOL IM GIVEN TO MANAGE COMPLAINTS WHICH WAS EFFECTIVE. SHE STATES SHE ATE DINNER AND THEN VOMITED IT UP. PRN ZOFRAN ADMINISTERED AND WILL ENDORSE REASSESSMENT OF [facility] TO [facility] [employer] [employer]PER[facility] NURSE. SHE IS SCHEDULED TO DISCHARGE TOMORROW TO [facility]. WILL PASS SHIFT REPORT [facility] N[facility].
--- NOTE | 2018-01-14 19:30 | NUR ---
START OF SHIFT Received 27 year old female admitted on 01/09/18 for Opiate and Benzodiazipine withdrawal. She completed her 5 day Ativan and 5 day Subutex tapert and tolerated well. She is scheduled to be DC tomorrow to [facility]. Per endorsement, she received PRN Toradol and Zofran. Pt noted to be disheveled with clothes thrown on floor of her room. She complains of anxiety, body aches, chills, sweats, agitation, restlessness, irritability, and abdominal cramps. Last COWS:3, CIWA:5 at 1700. Breathing is even and unlabored. Safety measures in place. Will continue to monitor.
--- NOTE | 2018-01-14 19:50 | NUR ---
PRN ZOFRAN REASSESSMENT PRN medication effective. Pt denies any nausea/vomiting and reports medication helped. Will monitor.
[2018-01-14 20:00] VITALS: BP 125/75
[2018-01-14] MEDS: CLONIDINE HCL 0.2 MG TABLET PO SCH (21:16)
[2018-01-14] MEDS: QUETIAPINE FUMARATE 200 MG TABLET PO SCH (21:16)
[2018-01-15] VITALS: BP 112/68
--- NOTE | 2018-01-15 04:00 | NUR ---
VITALS REFUSED, COWS/CIWA DEFERRED 0400 vitals refused. COWS and CIWA deferred d/t pt lying in bed with eyes closed noted to be asleep. Breathing even and unlabored. Safety measures in place. Will monitor.
[2018-01-15] MEDS: PANTOPRAZOLE SODIUM 40 MG TABLET.DR PO SCH (06:36)
--- NOTE | 2018-01-15 07:03 | NUR ---
END OF SHIFT Pt is a 27 year old female admitted on 01/09/18 for Opiate and Benzodiazepine withdrawal. Pt remains alert and oriented x4. She is scheduled to be DC today to [facility]. Pt had complaints of body aches, anxiety, chills, and restlessness during the shift. She did not receive or request PRN medications. She slept a total of 7 hrs, Intake: 500mL, Void: x1, BM:0, COWS:5, CIWA:6 at 2000. Breathing is even and unlabored. Safety measures in place. Will endorse to AM shift.
--- NOTE | 2018-01-15 07:50 | NUR ---
START OF SHIFT Client is sitting at the edge of bed, she is a/o x 4, client presents with anxious mood, flat affect, skin dry and warm to touch. Client stated, "I am feeling pretty anxious going to another place today, but I am ready." she reports stomach cramps, decrease appetite and restless legs. Client completed modifier 6 day Ativan/Subutex taper. Last CIWA / 6 @ 1999. Client had an uneventful night, she slept 7 hrs. Seizure precautions rendered. Call light within reach.
[2018-01-15 08:05] VITALS: BP 116/70
[2018-01-15] MEDS: BACLOFEN 10 MG TABLET PO SCH (08:52)
[2018-01-15] MEDS: GABAPENTIN 300 MG CAPSULE PO SCH (08:52)
[2018-01-15 08:53] VITALS: BP 119/74
[2018-01-15] MEDS: CLONIDINE HCL 0.1 MG TABLET PO SCH (08:53)
[2018-01-15] MEDS: SERTRALINE HCL 100 MG TABLET PO SCH (08:53)
[2018-01-15] MEDS: DICYCLOMINE HCL 20 MG TABLET PO SCH (08:53)
--- NOTE | 2018-01-15 09:28 | NUR ---
Discharge note Client was admitted for withdrawal from multiple substances. Client has a recent CIWA 4/COWS of 2. Client VS are WNL. LBM was 01/14/18. Client denies any SI/HI. Client verbalized her understanding of the discharge instructions, she has no complaints at this time. Client discharge instructions, prescriptions, medications and all belongings returned to her. All needs addressed at this time. Client ambulated off of unit, she left facility via [facility] for [facility].
== END 2018-01-15 09:28 | disposition other institution (70) | DRG 895 ==
LOC: SRC 13:41
PROVIDERS: ADMIT Internal Medicine; ATTEND Internal Medicine
DX: F11.23 Opioid dependence with withdrawal (principal); E87.1 Hypo-osmolality and hyponatremia; B19.20 Unspecified viral hepatitis C without hepatic coma; F13.230 Sedative, hypnotic or anxiolytic dependence with withdrawal, uncomplicated; Z59.0 Homelessness; K21.9 Gastro-esophageal reflux disease without esophagitis; F43.10 Post-traumatic stress disorder, unspecified; F41.0 Panic disorder [episodic paroxysmal anxiety]; F12.20 Cannabis dependence, uncomplicated; Z79.899 Other long term (current) drug therapy; Z91.89 Other specified personal risk factors, not elsewhere classified; Z81.8 Family history of other mental and behavioral disorders; Z91.5 Personal history of self-harm; Z81.1 Family history of alcohol abuse and dependence; F14.23 Cocaine dependence with withdrawal; F17.210 Nicotine dependence, cigarettes, uncomplicated; E86.1 Hypovolemia; E07.81 Sick-euthyroid syndrome; R76.11 Nonspecific reaction to tuberculin skin test without active tuberculosis; Z59.1 Inadequate housing
CPT/HCPCS: 36415; 70030-TC; 71045; 80307; 80349; 80353; 80361; 83735; 84443; 84703; 85025; 86580; 86592; 86705; 86803; 87340; 87806; A4663; G0480; J1885; Q0162; Q0163